=== PATIENT | male | born 1995 | race Caucasian/White ===

== ENCOUNTER 2021-01-07 15:28 | Outpatient (CLI) | payer MEDICAID, SELFPAY ==
--- NOTE | ~2021-01-07 | CT_ITS ---
EXAMINATION: CT abdomen pelvis wo con DATE: 01/07/2021 16:01 INDICATION: Left lower quadrant pain for 3 weeks. Nausea. TECHNIQUE: Computed tomography (CT) of the abdomen and pelvis was performed without intravenous contr ast. The dose-length product was 823.45 mGy-cm. Automated exposure control and iterative reconstructi on technique were employed. COMPARISON: None. FINDINGS: Lung bases are unremarkable. Heart size normal. No significant pleural or pericardial effus ion. No lymphadenopathy. Fatty infiltration of the liver. The spleen, pancreas, adrenal glands and ki dneys are unremarkable. Gallbladder is present. Normal appendix. No free air or free fluid. No abnorm al pelvic masses or fluid collections. No acute osseous abnormality. IMPRESSION: 1. No acute abdominal abnormality. Reviewed, dictated and finalized at location A.
== END 2021-01-07 15:29 | disposition home or self-care (01) ==
LOC: CHSIMG 15:30
PROVIDERS: PCP Physician Assistant; Visit Provider Physician Assistant
DX: R10.32 Left lower quadrant pain (principal)
CPT/HCPCS: 74176